=== PATIENT | female | born 1965 | race Caucasian/White ===

== ENCOUNTER → 2017-12-24 18:12 | Outpatient (CLI) | payer OTHER, SELFPAY ==
[2017-12-29 10:54] LABS: HPV APTIMA, High Risk Negative (Negative)
== END ==
PROVIDERS: Visit Provider Nurse Practitioner Women's Health
DX: Z12.4 Encounter for screening for malignant neoplasm of cervix (principal)
CPT/HCPCS: 88175; G0145

== ENCOUNTER → 2018-01-01 10:04 | Outpatient (CLI) | payer OTHER, SELFPAY ==
[2018-01-01 11:49] LABS: Follicle Stimulating Hormone 89.5 mIU/mL
== END ==
PROVIDERS: Family Provider Internal Medicine; PCP Internal Medicine; Visit Provider Nurse Practitioner Women's Health
DX: N91.5 Oligomenorrhea, unspecified (principal)
CPT/HCPCS: 36415; 83001

== ENCOUNTER → 2018-02-11 07:40 | Outpatient (CLI) | payer OTHER, SELFPAY ==
--- NOTE | 2018-02-11 07:40 | DT_ITS ---
This patient was seen during an EMR downtime February 09, 2018 - February 16, 2018. This patient may have a combination of paper and electronic documentation or all paper documentation. All documentation is viewable within the e-chart portion of [employer] for each patient visit.
--- NOTE | 2018-02-11 07:50 | BI_ITS ---
MAMMOGRAPHY - BILATERAL SCREENING REASON FOR EXAM: Female, 52 years old. Routine annual screening examination. PERTINENT HISTORY: Non-contributory. TECHNIQUE: Digital bilateral breast lore (3D mammographic acquisition) in the CC and MLO projections. 2-D mediolateral oblique (MLO) and craniocaudad (CC) views of both breasts were obtained. CAD: Full Field Digital Mammography with Computer Added Detection was performed. COMPARISON: Comparison is made with prior outside examination dated December 12, 2016. FINDINGS: Breast Composition: The breasts are heterogeneously dense, which may obscure small masses. There are no dominant masses or suspicious calcifications. Stable appearance of the benign appearing bilateral axillary lymph nodes. No other significant abnormalities are identified. There has been no significant change since the prior study. BI/SCREENING MAMM (CAD), BILAT IMPRESSION: Stable bilateral screening mammogram. Yearly follow-up mammogram recommended. (A) ASSESSMENT CATEGORY: BIRADS Category 2: Benign. A letter regarding these results will be sent to the patient by the facility within 30 days. Approximately 10% of breast cancers are not detected by mammography. A normal mammogram should not delay biopsy of a clinically suspicious abnormality. [id number] Electronically Signed: Asael Guerrero MD at 8:29 EDT Tel [phone], Service support ,
== END ==
PROVIDERS: Family Provider Internal Medicine; PCP Internal Medicine; Visit Provider Nurse Practitioner Women's Health
DX: Z12.31 Encounter for screening mammogram for malignant neoplasm of breast (principal)
CPT/HCPCS: 77063; 77067

== ENCOUNTER → 2019-04-27 | Outpatient (CLI) | payer BC, SELFPAY ==
[2019-04-27 08:55] VITALS: BMI 26.9
--- NOTE | 2019-04-27 10:21 | BI_ITS ---
MAMMOGRAPHY - BILATERAL SCREENING 3-D TOMOSYNTHESIS REASON FOR EXAM: Female, 53 years old. Bilateral Screening 3-D tomosynthesis PERTINENT HISTORY: No significant family history. TECHNIQUE: 2-D mammograms and 3-D Tomosynthesis of the breast (s) were performed. CAD was performed. COMPARISON: 02/11/2018. FINDINGS: The breast composition is composed of scattered fibroglandular density. Scattered benign calcifications are seen. No dense spiculated masses or suspicious microcalcifications are identified. No architectural distortion is identified. There is no skin thickening or retraction. There has been no significant change since the prior study. BI/SCREEN MAMM (CAD) W/SATYA BILAT IMPRESSION: No mammographic signs of malignancy. Routine yearly mammograms recommended. ASSESSMENT CATEGORY: BIRADS Category 2: Benign. A letter regarding these results will be sent to the patient by the facility within 30 days. FOLLOW UP RECOMMENDATION: Yearly follow up mammogram recommended. (A) Approximately 10% of breast cancers are not detected by mammography. A normal mammogram should not delay biopsy of a clinically suspicious abnormality. Electronically Signed: Dale Fernandes MD at 16:24 EDT Tel [phone], Service support ,
== END | disposition home or self-care (01) ==
PROVIDERS: Family Provider Internal Medicine; PCP Internal Medicine; Referring Provider Nurse Practitioner Women's Health; Visit Provider Nurse Practitioner Women's Health
DX: Z12.31 Encounter for screening mammogram for malignant neoplasm of breast (principal)
CPT/HCPCS: 77063; 77067

== ENCOUNTER → 2020-06-29 11:42 | Outpatient (CLI) | payer BC, SELFPAY ==
[2019-04-27 08:55] VITALS: BMI 26.9
[2020-06-29 08:50] VITALS: BMI 25.3
--- NOTE | 2020-06-29 11:43 | BI_ITS ---
MAMMOGRAPHY - BILATERAL SCREENING REASON FOR EXAM: Female, 54 years old. Routine annual screening examination. PERTINENT HISTORY: Non-contributory. TECHNIQUE: Digital bilateral breast satya (3D mammographic acquisition) in the CC and MLO projections. 2-D mediolateral oblique (MLO) and craniocaudad (CC) views of both breasts were obtained. CAD: Full Field Digital Mammography with Computer Added Detection was performed. COMPARISON: Comparison is made with prior examination in 04/27/2019 and 02/11/2018. FINDINGS: Breast Composition: There are scattered areas of fibroglandular density. There are no dominant masses or suspicious calcifications. No other significant abnormalities are identified. There has been no significant change since the prior study. BI/SCREEN MAMM (CAD) W/SATYA BILAT IMPRESSION: Stable bilateral screening mammogram. Yearly follow-up mammogram recommended. (A) ASSESSMENT CATEGORY: BIRADS Category 1: Negative. A letter regarding these results will be sent to the patient by the facility within 30 days. Approximately 10% of breast cancers are not detected by mammography. A normal mammogram should not delay biopsy of a clinically suspicious abnormality. [id number] Electronically Signed: Asael Guerrero, at 13:16 EDT , Service support ,
== END ==
PROVIDERS: PCP Internal Medicine; Referring Provider Nurse Practitioner Women's Health; Visit Provider Nurse Practitioner Women's Health
DX: Z12.31 Encounter for screening mammogram for malignant neoplasm of breast (principal)
CPT/HCPCS: 77063; 77067

== ENCOUNTER 2020-11-24 15:04 | Outpatient (RCR) | payer BC, SELFPAY ==
[2020-06-29 08:50] VITALS: BMI 25.3
[2020-11-24] MEDS: COVID-19 VACC, MRNA(PFIZER)/PF 30 MCG/0.3 ML SYRINGE IM (15:50)
[2020-12-15] MEDS: COVID-19 VACC, MRNA(PFIZER)/PF 30 MCG/0.3 ML SYRINGE IM (08:58)
== END 2020-11-24 23:59 ==
LOC: IMMUN 15:04
PROVIDERS: PCP Nurse Practitioner Primary Care; Referring Provider Family Medicine; Visit Provider Family Medicine
DX: Z23 Encounter for immunization (principal)
CPT/HCPCS: 0001A; 0002A; 91300

== ENCOUNTER → 2021-07-16 15:16 | Outpatient (CLI) | payer BC, SELFPAY ==
--- NOTE | 2021-07-16 15:18 | BI_ITS ---
MAMMOGRAPHY - BILATERAL SCREENING REASON FOR EXAM: Female, 55 years old. Routine annual screening examination. PERTINENT HISTORY: Non-contributory. TECHNIQUE: Digital bilateral breast satya (3D mammographic acquisition) in the CC and MLO projections. 2-D mediolateral oblique (MLO) and craniocaudad (CC) views of both breasts were obtained. CAD: Full Field Digital Mammography with Computer Added Detection was performed. COMPARISON: Comparison is made with prior study 06/29/2020 and 04/27/2019. FINDINGS: Breast Composition: There are scattered areas of fibroglandular density. There are no dominant masses or suspicious calcifications. Stable small benign-appearing bilateral axillary lymph nodes. No other significant abnormalities are identified. There has been no significant change since the prior study. BI/SCRN MAMM (CAD)W/SATYA BILAT IMPRESSION: Stable bilateral screening mammogram. Yearly follow-up mammogram recommended. (A) ASSESSMENT CATEGORY: BIRADS Category 2: Benign. A letter regarding these results will be sent to the patient by the facility within 30 days. Approximately 10% of breast cancers are not detected by mammography. A normal mammogram should not delay biopsy of a clinically suspicious abnormality. [id number] Electronically Signed: Asael Guerrero MD at 8:59 EST , Service support ,
== END ==
PROVIDERS: PCP Nurse Practitioner; Visit Provider Nurse Practitioner Women's Health
DX: Z12.31 Encounter for screening mammogram for malignant neoplasm of breast (principal)
CPT/HCPCS: 77063; 77067

== ENCOUNTER 2022-08-07 10:24 | Outpatient (CLI) | payer BC, SELFPAY ==
--- NOTE | 2022-08-07 10:27 | BI_ITS ---
MAMMOGRAPHY - BILATERAL SCREENING REASON FOR EXAM: Female, 56 years old. Routine annual screening examination. PERTINENT HISTORY: Non-contributory. TECHNIQUE: Digital bilateral breast satya (3D mammographic acquisition) in the CC and MLO projections. 2-D mediolateral oblique (MLO) and craniocaudad (CC) views of both breasts were obtained. CAD: Full Field Digital Mammography with Computer Added Detection was performed. COMPARISON: Comparison is made with prior study 07/16/2021 and 06/29/2020. FINDINGS: Breast Composition: There are scattered areas of fibroglandular density. There are no dominant masses or suspicious calcifications. Stable small benign-appearing bilateral axillary. No other significant abnormalities are identified. There has been no significant change since the prior study. BI/SCRN MAMM (CAD)W/SATYA BILAT IMPRESSION: Stable bilateral screening mammogram. Yearly follow-up mammogram recommended. (A) ASSESSMENT CATEGORY: BIRADS Category 2: Benign. A letter regarding these results will be sent to the patient by the facility within 30 days. Approximately 10% of breast cancers are not detected by mammography. A normal mammogram should not delay biopsy of a clinically suspicious abnormality. [id number] Electronically Signed: Asael Guerrero MD at 11:25 EST ,
== END 2022-08-07 23:59 | disposition home or self-care (01) ==
LOC: OPBI 10:26
PROVIDERS: PCP Nurse Practitioner; Visit Provider Nurse Practitioner Women's Health
DX: Z12.31 Encounter for screening mammogram for malignant neoplasm of breast (principal)
CPT/HCPCS: 77063; 77067

== ENCOUNTER 2023-04-10 14:33 | Emergency (ER) | payer BC, SELFPAY ==
[2023-04-10 14:34] VITALS: BP 178/100; PULSE 115; RESP 16; TEMP 36.2; O2SAT 99; BMI 25.8
--- NOTE | 2023-04-10 14:44 | EDS_ITS ---
HPI <RADHA Wiley - Last Filed: 04/10/23 15:55> History of Present Illness Chief Complaint: Upper Extremity Injury Narrative Narrative: Patient presenting today with pain into her left hand after she was walking her dog in flip-flops and accidentally tripped on the cement and fell, trying to catch herself with her left hand but subsequently hit it against the ground. She did not hit her head and denies loss of consciousness. She denies any other injury. She has [id number]. PFSH <RADHA Wiley - Last Filed: 04/10/23 15:55> [facility] Home Medications biotin 1 mg capsule 1 mg PO QDAY 12/24/17 [History Last Taken Unknown] multivitamin 1 tab PO QAM 12/24/17 [History Last Taken Unknown] coenzyme Q10 75 mg capsule (Ultra CoQ10) 75 mg PO DAILY 04/27/19 [History Last Taken Unknown] estradiol 0.01% (0.1 mg/gram) vaginal cream See Rx Instructions vaginal .COMPLEX 07/16/21 [History Last Taken Unknown] Allergy/AdvReac Type Severity Reaction Status Date / Time No Known Allergies Allergy Verified 04/10/23 14:35 Family History Father Hypertension Social History Smoking Status: Never smoker alcohol intake: current details: occasionally substance use type: does not use caffeine: Yes what type of physical activity do you participate in: other details: elliptical frequency: 1-2 times per week seatbelt use: always do you feel safe at home: Yes additional social history: - [employer]-Retired 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 ROS <RADHA Wiley - Last Filed: 04/10/23 15:55> ROS ED Constitutional Constitutional ED: Denies chills or fever(s) Eyes Eyes: Denies change in vision Cardiovascular Cardiovascular: Denies chest pain Respiratory/Chest Respiratory/Chest: Denies cough or dyspnea Gastrointestinal Gastrointestinal: Denies abdominal pain, nausea or vomiting Musculoskeletal Musculoskeletal: Reports arthralgias; Denies back pain or neck pain Integumentary Reports Abrasions; Denies abscess or rash Neurologic Neurologic: Denies paresthesias or weakness EXAM <RADHA Wiley - Last Filed: 04/10/23 15:55> Physical Exam Const Vital Signs: 04/10/23 14:34 Temperature 97.2 F L Temperature Source Temporal Pulse Rate 115 H Respiratory Rate 16 Blood Pressure 178/100 H Blood Pressure Mean 126 Pulse Ox 99 Oxygen Delivery Method Room Air Positive well nourished, well developed and no apparent distress General Appearance ED: well developed HEENT Reports normocephalic and head/scalp atraumatic Mouth ED: Yes moist mucous membranes normal Eyes PERRL and EOMs intact bilaterally Neck full ROM and supple Chest Wall inspection of chest normal Resp normal respiratory effort and clear to auscultation bilaterally Cardio regular rate and regular rhythm GI soft to palpation, non-tender, non-distended and no masses Back/Spine normal ROM and normal to inspection Extremity normal to inspection and full ROM Extremity Narrative: Swelling to the medial aspect of the left hand with pain to palpation to the base of the fifth metacarpal. Radial pulses 2+ and equal bilaterally, good capillary refill, sensation intact. Patient is able to wiggle her fingers. Neuro oriented x3, CN's II-XII intact bilaterally, moves all extremities, no focal motor deficits and no sensory deficits noted Sensorium / Orientation: awake and alert Psych mental status grossly normal and thought process normal Skin no rashes or lesions noted and no wounds MDM <RADHA Wiley - Last Filed: 04/10/23 15:55> [facility] Narrative Medical decision making narrative: Patient presenting today with pain to her left hand after a mechanical fall that occurred causing her to hit her left hand against the cement. She has swelling and pain to the medial aspect of the left hand. She is well-appearing and in no acute distress. She did not hit her head and there was no loss of consciousness. She has a few abrasions to the left hand and one abrasion to the right knee without any pain to her right knee. X-ray will be obtained to rule fracture. She does have a fracture to the base of the third fourth and fifth metacarpals. Patient reports that she does not want anything stronger than Tylenol for her pain. She will be given Tylenol here and has a bottle of it at home. Attending did speak with orthopedic physician on-call, Dr. Valdez who reports that somebody in his office will see her and to place her in an ulnar gutter splint. She will be given a follow-up referral for Dr. Sung and has been given RICE instructions. She will be discharged home in stable condition and is comfortable with plan. Radiography X-Ray: Read by ED Physician and Read by Radiologist <Dr. Dylan Dean MD - Last Filed: 04/10/23 16:05> [facility] Narrative Medical decision making narrative: Patient presenting today with pain to her left hand after a mechanical fall that occurred causing her to hit her left hand against the cement. She has swelling and pain to the medial aspect of the left hand. She is well-appearing and in no acute distress. She did not hit her head and there was no loss of consciousness. She has a few abrasions to the left hand and one abrasion to the right knee without any pain to her right knee. X-ray will be obtained to rule fracture. She does have a fracture to the base of the third fourth and fifth metacarpals. Patient reports that she does not want anything stronger than Tylenol for her pain. She will be given Tylenol here and has a bottle of it at home. Attending did speak with orthopedic physician on-call, Dr. Valdez who reports that somebody in his office will see her and to place her in an ulnar gutter splint. She will be given a follow-up referral for Dr. Sung and has been given RICE instructions. She will be discharged home in stable condition and is comfortable with plan. I have personally performed a face to face assessment of the patient and have reviewed the DENNIS Note. I performed a substantive portion of the visit including all aspects of the following. My de la paz findings include: History is remarkable for patient falling injuring her right hand. She is right-hand dominant. She localizes the pain to the base of the fourth and fifth metacarpal bone. She denies paresthesia, anesthesia medics. She has abrasion noted ulnar side of the hand and left little finger. There is also an abrasion on the palmar surface near the intersection of the thenar and hypothenar eminence. Median, radial and ulnar function intact. Capillary refill is normal. There is no rotational malalignment of her fingers. Exam is She has abrasion noted ulnar side of the hand and left little finger. There is also an abrasion on the palmar surface near the intersection of the thenar and hypothenar eminence. Median, radial and ulnar function intact. Capillary refill is normal. There is no rotational malalignment of her fingers. Medical Decision Making x-ray of the hand was obtained to evaluate for fracture. Patient is noted to have a minimally displaced fracture base of the fifth metacarpal that is a spiral type fracture and a fracture of the base of the fourth metacarpal with approximately 25% of the articular surface noted. There is minimal displacement. Case was discussed with Dr. Riley Valdez. Patient was referred to Dr. Sung who does do hand surgery in their group. Plan was ulnar gutter plaster splint. This was placed by me. Patient's wounds were cleaned. Adaptic and nonadhesive cover was placed. The ulnar gutter splint was then applied by me and assisted by nursing staff. Patient tolerated procedure well. Other additions or changes: Patient was told to elevate, ice and she did not want any pain medicine. Discharge Plan Triage Chief Complaint: Upper Extremity Injury ED Midlevel Provider: Lupe Ames ED Provider: Dylan Dean Dx/Rx/DC Orders Clinical Impression: Hand fracture, left, Abrasion of left hand and fingers, Closed fracture of base of fourth metacarpal bone of left hand, Fracture of base of fifth metacarpal bone of left hand Instructions: ED Fracture, Upper Extremity Prescriptions: No Action multivitamin tablet 1 tab PO QAM biotin 1 mg capsule 1 mg PO QDAY Ultra CoQ10 75 mg capsule 75 mg PO DAILY estradiol 0.01 % (0.1 mg/gram) cream See Rx Instructions vaginal .COMPLEX Rx Instructions: compounded as directed vaginal every other day X 1 month then twice a week Primary Care Provider: Evita Spann NP Referrals: Sidney Sung DO [Med Staff - Active Staff] - 5-7 Days Evita Spann NP, [employer] [Primary Care Provider] - Activity Restrictions/Additional Instructions: Elevate your hand when you can and ice it several times a day for the next few days. Alternate Tylenol and ibuprofen for your pain Disposition Disposition: Home, Self Care
--- NOTE | 2023-04-10 14:45 | RAD_ITS ---
EXAM: XR LEFT HAND COMPLETE, 3 OR MORE VIEWS CLINICAL INDICATION: injury TECHNIQUE: Frontal, lateral and oblique views of the left hand. COMPARISON: No relevant prior studies available. FINDINGS: BONES/JOINTS: Fracture of the base of the fifth and fourth metacarpal bone. Fracture the base of the third metacarpal bone. The fracture is slightly displaced. Preservation of the joint space. No sclerotic or destructive changes observed. SOFT TISSUES: Unremarkable. No soft tissue swelling or gas. No radiopaque foreign body. RAD/Hand Min 3 Views IMPRESSION: Fracture of the base of the fifth and fourth metacarpal bone. Fracture the base of the third metacarpal bone. The fracture is slightly displaced. Electronically Signed: Chandana Mclaughlin MD at 15:27 EDT ,
[2023-04-10] MEDS: Acetaminophen 325 MG Tablet 650 MG PO (16:11)
== END 2023-04-10 16:16 | disposition home or self-care (01) ==
PROVIDERS: Emergency Provider Emergency Medicine; PCP Nurse Practitioner; Visit Provider Emergency Medicine
DX: S62.317A Displaced fracture of base of fifth metacarpal bone, left hand, initial encounter for closed fracture (principal); S60.512A Abrasion of left hand, initial encounter; S62.315A Displaced fracture of base of fourth metacarpal bone, left hand, initial encounter for closed fracture; S62.303A Unspecified fracture of third metacarpal bone, left hand, initial encounter for closed fracture; W01.198A Fall on same level from slipping, tripping and stumbling with subsequent striking against other object, initial encounter; Y93.K1 Activity, walking an animal
CPT/HCPCS: 29125; 73130; 99283

== ENCOUNTER → 2023-04-23 | Outpatient (CLI) | payer BC, SELFPAY ==
--- NOTE | 2023-04-23 19:03 | CT_ITS ---
INDICATION: LEFT HAND FX EXAMINATION: CT Upper Extremity W/O Contrast Injection TECHNIQUE: Helically acquired images were obtained of the left hand. 2-D reformats were performed by the technologist. A radiation dose optimization technique was used for this scan. IV Contrast dosage and agent: None. COMPARISON: None. FINDINGS: BONES AND ALIGNMENT: Acute slightly comminuted and minimally displaced fractures of the bases of the fourth and fifth metacarpals with intra-articular extension. JOINTS: Mild degenerative changes of the radiocarpal joint and interphalangeal joints.. SOFT TISSUES: Mild soft tissue edema of the hand and wrist. CT/Extremity Upper without Contra IMPRESSION: Acute slightly comminuted and minimally displaced fractures of the bases of the fourth and fifth metacarpals with intra-articular extension. Electronically Signed: Rashaun Harmon MD at 19:51 EDT ,
== END | disposition home or self-care (01) ==
LOC: CT 19:02
PROVIDERS: PCP Nurse Practitioner; Visit Provider Student in an Organized Health Care Education/Training Program
DX: S62.317D Displaced fracture of base of fifth metacarpal bone, left hand, subsequent encounter for fracture with routine healing (principal); S62.315D Displaced fracture of base of fourth metacarpal bone, left hand, subsequent encounter for fracture with routine healing
CPT/HCPCS: 73200

== ENCOUNTER 2023-04-24 11:20 | Day surgery (SDC) | payer BC, SELFPAY ==
--- NOTE | 2023-04-21 08:23 | EKG12_ITS ---
Test Reason : PRE OP Blood Pressure : / mmHG Vent. Rate : 109 BPM Atrial Rate : 109 BPM P-R Int : 142 ms QRS Dur : 076 ms QT Int : 348 ms P-R-T Axes : 052 052 046 degrees QTc Int : 468 ms Sinus tachycardia Possible Left atrial enlargement Borderline ECG Confirmed by NICK MENDEZ ([id number]), electronic news gathering editor RENAE GUERRERO ([id number]) on 04/28/2023 2:04:22 PM Referred By: Sidney Sung Confirmed By:NICK MENDEZ
[2023-04-21 09:32] LABS: Absolute Lymphocyte Count 2.29 X10^3/uL (0.83-4.51); Basophil# 0.07 X10^3/uL; Basophil% 0.9 % (0-1); Eosinophil# 0.18 X10^3/uL; Eosinophils% 2.2 % (0-5); Hematocrit 47.3 % (37-47); Hemoglobin 15.5 g/dL (12.0-15.0); Lymphocyte # 2.29 X10^3/ul (0.83-4.51); Lymphocyte % 28.5 % (19-41); Mean Corp Hgb Conc 32.8 g/dL (32-36); Mean Corpuscular Hgb 28.4 pg (27.0-32.0); Mean Corpuscular Volume 86.8 fL (81-99); Mean Platelet Vol. 9.6 fl (6.2-12.0); Monocyte# 0.51 X10^3/uL; Monocyte% 6.4 % (0-10); NRBC Flagged by Analyzer 0 % (0-5); Neutrophil # 4.96 X10^3/uL (2.7-7.7); Neutrophil % 61.8 % (47-70); Platelet Count 324 K/mm3 (150-450); RBC Distribution Width CV 12.8 % (11.6-14.6); RBC Distribution Width SD 39.9 fl (35.1-43.9); Red Blood Count 5.45 M/mm3 (4.2-5.4)
[2023-04-21 10:06] LABS: Hemoglobin A1c 5.5 % (3.8-5.6)
[2023-04-21 10:21] LABS: Anion Gap 6 (5-15); BUN 12 mg/dL (7-18); BUN/Creat Ratio 13.5 RATIO (10-20); Calcium,Total 9.1 mg/dL (8.5-10.1); Chloride 109 mmol/L (98-107); Creatinine, Serum 0.89 mg/dL (0.55-1.02); EST Glomerular Filtration Rate 70 mL/min (>60); Est Glom Filt Rate - Afr Amer 84 mL/min (>60); Glucose 100 mg/dL (74-106); Potassium 3.8 mmol/L (3.5-5.1); Sodium Level 140 mmol/L (136-145)
[2023-04-24 11:46] VITALS: BP 150/87; PULSE 96; RESP 16; O2SAT 100; BMI 26.6
[2023-04-24] MEDS: Lactated Ringers 1,000 ML 15 ML IV (12:03)
--- NOTE | 2023-04-24 12:50 | RAD_ITS ---
EXAM: XR LEFT HAND, 2 VIEWS CLINICAL INDICATION: FX TECHNIQUE: Frontal and lateral views of the left hand. COMPARISON: 04/10/2023 FINDINGS: BONES/JOINTS: Intraoperative images were obtained. These show orthopedic plate and screws across a fracture of the fifth metacarpal. Preservation of the joint space. No sclerotic or destructive changes observed. SOFT TISSUES: Unremarkable. No soft tissue swelling or gas. No radiopaque foreign body. RAD/Hand 2 Views IMPRESSION: ORIF of a fifth metacarpal fracture. Electronically Signed: Kwabena Shipley MD at 19:47 EDT ,
[2023-04-24] MEDS: Cefazolin 2 GM in 0.9% Normal Saline 100 ML IV (12:57)
[2023-04-24] MEDS: Bupivacaine Mpf 0.5% 30 ML VIAL (14:07)
[2023-04-24 14:34] VITALS: BP 140/86; BP 150/87; PULSE 93; RESP 16; O2SAT 96
[2023-04-24 14:36] VITALS: BP 130/49; BP 150/87; PULSE 98; RESP 16; TEMP 36.6; O2SAT 97
[2023-04-24 14:55] VITALS: BP 128/70; BP 150/87; PULSE 100; RESP 16; TEMP 36.4; O2SAT 98
[2023-04-24] MEDS: Ketorolac 30 MG/ML Syringe IV (15:14)
[2023-04-24 15:18] VITALS: BP 150/87
--- NOTE | 2023-04-24 19:13 | OP.PCM_ITS ---
Report of Operation Date of Procedure: 04/24/23 Description of Surgical Findings:: Preoperative diagnosis: Left fifth metacarpal base fracture Postoperative diagnosis: Left fifth metacarpal base fracture Procedures: Open reduction internal fixation left fifth metacarpal base Surgeon: Sidney Sung DO Foreign Trade Teacher: Dionne Liriano PA-C Anesthesia: General endotracheal Anesthesiologist: Dr. Claire Complications: None Drains: None Estimated blood loss: 10 cc Urinary output: None measured IV fluids: Per anesthesia record Specimens: None Surgical implants: Synthes 2.0 mm T plate and cortical screws Surgical indications: This is a 57-year-old female seen in the outpatient setting after being seen in the [facility] emergency department approximately 2 weeks ago. Patient had a fall operative onto her left hand while she was walking her dog. X-rays revealed fractures of the fourth and fifth metacarpal bases. She was seen in the outpatient setting. 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 I recommended surgical intervention in the form of closed reduction percutaneous pinning versus ORIF left fifth metacarpal. The fourth metacarpal appeared to be amenable to nonoperative management. Risk, benefits, alternatives to the procedure reviewed with the patient at length and she agreed to proceed with surgery. Risks included but were not limited to bleeding, infection, loss of life or limb, persistent pain, persistent deformity, weakness, need for additional surgery, symptomatic hardware, neurovascular injury, tendon rupture. She expressed understanding and wished to proceed with surgery. Description of procedure: Patient was seen in preoperative holding area. She was identified by name, medical record number, date of . The operative extremity was marked with a surgical marker. We confirmed informed consent with the patient and all questions were answered to her satisfaction. At time of her procedure, patient was brought to the operative suite and positioned supine a standard operating table. All bony prominences were well- padded. General anesthesia was induced and endotracheal tube placed. The left upper extremity was then prepped for surgery by first applying a well-padded pneumatic tourniquet to the left forearm. The hand table attached to the left side of the table. We spun the bed 90 degrees. The left upper extremity was then prepped and draped in normal, sterile orthopedic fashion. 2 g Ancef was administered prior to incision by anesthesia staff. We performed a timeout at this point confirming side, site, and operation to be performed. No concerns voiced and elected to proceed. We first exsanguinated the left upper extremity with a an Esmarch bandage. Tourniquet was inflated to 250 mmHg were made up for approximately 40 minutes. I attempted a closed reduction maneuver with longitudinal traction and direct manipulation of the fracture. I was unable to achieve appropriate rotational stability. Elected proceed with ORIF. A standard longitudinal approach was made overlying the fifth metacarpal base. Approximately 4 cm longitudinal incision was made sharply with a 15 blade scalpel. Blunt dissection was carried down to the level of the extensor tendons. The extensor tendons of the fifth digit were retracted ulnarly. Periosteal stripping was noted at this level of the fracture site. Early fracture callus was debrided as well as fracture hematoma. Fracture was irrigated. I then utilized a pointed reduction clamp to achieve anatomic reduction of the spiral fracture at the base of the fifth metacarpal. This was held in place with K wires. I scrutinized the rotational deformity of her fifth digit. I visualized the well side and felt the rotation was anatomic. I proceeded with leg screw fixation with a lag by technique 2.0 mm lag screw obliquely, crossing the fracture site perpendicularly with exce llent compression and stability. Provisional fixation was removed. I selected a T plate from [employer], 2.0 mm. This was trimmed for appropriate length. This was held provisionally with K wires. Orthogonal fluoroscopy confirmed appropriate hardware placement. I compressed the plate to bone with cortical screws proximal and distal to the fracture site. Rotation was again scrutinized and appeared to be anatomic. An additional cortical screw was placed proximal to the fracture site. Given the periarticular nature, we are limited in achieving proximal fixation. I placed 2 additional cortical screws distal to the fracture site. Fracture is stable at this time. Orthogonal fluoroscopy confirmed appropriate hardware placement and anatomic reduction. Tourniquet deflated hemostasis was achieved with bipolar cautery. I reapproximated periosteum over the plate to mitigate risk of hardware irritation. Tendons were repositioned over the fifth metacarpal. Dermis was reapproximated with 3-0 Vicryl suture and subsequent 4-0 nylon suture in interrupted horizontal mattress fashion. Sterile compression dressing was applied. Patient was placed in a well-padded volar short arm splint in intrinsic plus position. Patient tolerated procedure well without apparent complication. She was subsequently extubated and transferred to PACU in stable condition. Need for skilled assistant food service manager: Dionne Liriano PA-C was critical to the outcome of the case. During the course of the procedure the physician assistant food service manager played a vital role. Her intimate knowledge of my steps in the procedure aided in safe and expedient completion of the procedure. The PA played a vital role in positioning particularly in obtaining the appropriate positioning. The PA was also vital in the retraction of soft tissues during the exposure and protecting vital structures. . She also played a vital role in closure with my direct supervision as well as splint application. Post Operative Plan: Weightbearing: Nonweightbearing operative extremity Antibiotics: Ancef 2 g x 1 dose preoperatively DVT Prophylaxis: Aspirin 81 mg twice daily until follow-up [place]dermott: None Dressing: Maintain splint, keep it clean dry and intact until follow-up X-Rays: 1 week postop in the office Pain Medication: Oxycodone prescription provided in the office Follow-up: 1 week post-operatively with me in the office. Plan to initiate ear ly OT for range of motion.
== END 2023-04-24 16:03 | disposition home or self-care (01) ==
LOC: SDC 11:27 → AC 11:27
PROVIDERS: PCP Nurse Practitioner; Referring Provider Student in an Organized Health Care Education/Training Program; Visit Provider Student in an Organized Health Care Education/Training Program
PROC: (CPT 26605; principal; 2023-04-24 12:45)
DX: S62.317D Displaced fracture of base of fifth metacarpal bone, left hand, subsequent encounter for fracture with routine healing (principal); S62.315D Displaced fracture of base of fourth metacarpal bone, left hand, subsequent encounter for fracture with routine healing; S62.343D Nondisplaced fracture of base of third metacarpal bone, left hand, subsequent encounter for fracture with routine healing; S60.512D Abrasion of left hand, subsequent encounter; M79.642 Pain in left hand; R03.0 Elevated blood-pressure reading, without diagnosis of hypertension; W01.0XXD Fall on same level from slipping, tripping and stumbling without subsequent striking against object, subsequent encounter
CPT/HCPCS: 26605; 01820; 36415; 73120; 76000; 80048; 83036; 85025; 93005; C1713; J7120; J2405

== ENCOUNTER → 2023-09-16 | Outpatient (CLI) | payer BC, SELFPAY ==
[2023-09-19 06:09] LABS: HPV APTIMA, High Risk Negative (Negative)
== END | disposition home or self-care (01) ==
PROVIDERS: PCP Nurse Practitioner; Referring Provider Nurse Practitioner Women's Health; Visit Provider Nurse Practitioner Women's Health
DX: Z12.4 Encounter for screening for malignant neoplasm of cervix (principal)
CPT/HCPCS: 87624; 88175; G0145

== ENCOUNTER → 2023-09-16 | Outpatient (CLI) | payer BC, SELFPAY ==
--- NOTE | 2023-09-16 10:21 | BI_ITS ---
MAMMOGRAPHY - BILATERAL SCREENING REASON FOR EXAM: Female, 57 years old. Routine annual screening examination. PERTINENT HISTORY: Non-contributory. TECHNIQUE: Digital bilateral breast satya (3D mammographic acquisition) in the CC and MLO projections. 2-D mediolateral oblique (MLO) and craniocaudad (CC) views of both breasts were obtained. CAD: Full Field Digital Mammography with Computer Added Detection was performed. COMPARISON: Comparison is made with prior examination dated August 07, 2022 and July 16, 2021. FINDINGS: Breast Composition: There are scattered areas of fibroglandular density. There are no dominant masses or suspicious calcifications. No other significant abnormalities are identified. There has been no significant change since the prior study. BI/SCRN MAMM (CAD)W/SATYA BILAT IMPRESSION: Stable bilateral screening mammogram. Yearly follow-up mammogram recommended. (A) ASSESSMENT CATEGORY: BIRADS Category 1: Negative. A letter regarding these results will be sent to the patient by the facility within 30 days. Approximately 10% of breast cancers are not detected by mammography. A normal mammogram should not delay biopsy of a clinically suspicious abnormality. [id number] Electronically Signed: Asael Guerrero MD at 11:02 EST ,
--- OUTSIDE RECORDS SUMMARY | 2023-09-16 11:29 | XMS RPT_ITS | CCD ---
Author Name Unknown Address [address] [place] [address] Organization [facility] Care Team Providers Care Licensed Psychologist Manager Name Role Phone Brayden MERINO, Ela Primary Care Provider [phone] OLDER, ROSA Attending Unavailable ELA HARP Primary Care Unavailable ELA HARP Primary Care Unavailable JOLYNN EAGLE Attending Unavailable ELA HARP Primary Care Unavailable JOLYNN EAGLE Attending Unavailable ELA HARP Primary Care Unavailable ROSA CARDENAS Referring Unavailable ELA HARP Primary Care Unavailable THERESA ROSA Referring Unavailable ELA HARP Primary Care Unavailable OLDER, ROSA Referring Unavailable Allergies Allergy Classification Reported Allergen(s) Allergy Type Date of Onset Reaction(s) Facility (6 sources) Seasonal allergy; Translations: [SEASONAL ALLERGIES] Allergy to substance 06-04-2011 Itching [facility] Work Phone: Medications Completed/Discontinued Medications Medication Drug Class(es) Dates Sig (Normalized) Sig (Original) Biotin (5 sources) Biotin 500 mcg c ap Take by mouth. 0 Active Problems Active Problems Problem Classification Problem Date Documented Da te Episodic/Chronic Disorders of lipid metabolism (8 sources) Mixed hyperlipidemia; Translations: [Mixed hyperlipidemia] Onset: 06-11-2017 Chronic Other liver diseases (1 source) Elevated liver enzymes level; Translations: [Abnormal levels of other serum enzymes] 08-08-2023 Episodic Other liver diseases (1 source) Abnormal levels of other serum enzymes; Translations: [Elevated liver enzymes] Onset: 08-18-2023 Episodic Other screening for suspected conditions (not mental disorders or infectious disease) (2 sources) Patient encounter status; Translations: [Encounter for screening for malignant neoplasm of colon] Episodic Other skin disorders (1 source) Loss of hair; Translations: [Nonscarring hair loss, unspecified] 08-04-2023 Episodic Other skin disorders (1 source) Nonscarring hair loss, unspecified; Translations: [Thinning hair] Onset: 08-04-2023 Episodic Residual codes; unclassified (2 sources) Treatment not available; Translations: [Procedure and treatment not carried out for other reasons] Episodic Past or Other Problems Problem Classification Problem Date Documented Da te Episodic/Chronic Other connective tissue disease (5 sources) Adhesive capsulitis of left shoulder; Translations: [Adhesive capsulitis of left shoulder] Onset: 10-11-2020 10-11-2020 Episodic Results Test Name Value Interpretation Reference Range Facil ity Vital Signs Date Time Vital Sign Value Performing Clinician Faci lity 08-04-2023 08:40-0500 Body height 166 cm Rosa Older MOTEL FRONT DESK CLERK.[address] ATTENDANT Work Phone: [facility] 08-04-2023 08:40-0500 Body weight 73.03 kg Rosa Older MOTEL FRONT DESK CLERK.[address] ATTENDANT Work Phone: [facility] 08-04-2023 08:40-0500 Diastolic blood pressure 84 mm[Hg] Rosa Older MOTEL FRONT DESK CLERK.[address] ATTENDANT Work Phone: [facility] 08-04-2023 08:40-0500 Heart rate 88 /min Rosa Older MOTEL FRONT DESK CLERK.[address] ATTENDANT Work Phone: [facility] 08-04-2023 08:40-0500 Respiratory rate 18 /min Rosa Older MOTEL FRONT DESK CLERK.[address] ATTENDANT Work Phone: [facility] 08-04-2023 08:40-0500 Systolic blood pressure 116 mm[Hg] Rosa Older MOTEL FRONT DESK CLERK.[address] ATTENDANT Work Phone: [facility] 10-28-2022 11:56-0500 Body height 167.6 cm Jolynn Eagle MOTEL FRONT DESK CLERK.[address] ATTENDANT Work Phone: [facility] 10-28-2022 11:56-0500 Body temperature 99.19 [degF] Jolynn Eagle MOTEL FRONT DESK CLERK.[address] ATTENDANT Work Phone: [facility] 10-28-2022 11:56-0500 Body weight 69.85 kg Jolynn Eagle MOTEL FRONT DESK CLERK.[address] ATTENDANT Work Phone: [facility] 07-31-2022 12:38-0500 Body weight 71.22 kg Rosa Older MOTEL FRONT DESK CLERK.[address] ATTENDANT Work Phone: [facility] 07-31-2022 12:38-0500 Diastolic blood pressure 82 mm[Hg] Rosa Older MOTEL FRONT DESK CLERK.[address] ATTENDANT Work Phone: [facility] 07-31-2022 12:38-0500 Heart rate 68 /min Rosa Older MOTEL FRONT DESK CLERK.[address] ATTENDANT Work Phone: [facility] 07-31-2022 12:38-0500 Respiratory rate 16 /min Rosa Older MOTEL FRONT DESK CLERK.[address] ATTENDANT Work Phone: [facility] 07-31-2022 12:38-0500 Systolic blood pressure 118 mm[Hg] Rosa Older MOTEL FRONT DESK CLERK.[address] ATTENDANT Work Phone: [facility] Encounters Encounter Date Encounter Type Care Provider Facility Start: 08-18-2023 End: 08-19-2023 [facility] Facility:[facility] Start: 08-08-2023 Telephone encounter Rosa Older MOTEL FRONT DESK CLERK.[address] ATTENDANT Work Phone: Internal Medicine Nnamdi Procedures Date Procedure Procedure Detail Performing Clinician Start: 08-04-2023 INFLUENZA VACCINE, A GE 6 MO - 64 YR, QUADRIVALENT (AFLURIA, FLULAVAL, FLUZONE) Rosa Older MOTEL FRONT DESK CLERK.[address] ATTENDANT Work Phone: Start: 08-04-2023 [employer] COVI D-19 VACCINE (2022- SEASON) AGE 12+ YR Rosa Older MOTEL FRONT DESK CLERK.[address] ATTENDANT Work Phone: Start: 08-04-2023 Lipid 1996 panel - S polina or Plasma Rosa Older MOTEL FRONT DESK CLERK.[address] ATTENDANT Work Phone: Start: 08-07-2022 Mammography Katalyn Ye nne MOTEL FRONT DESK CLERK.[address] ATTENDANT Work Phone: Start: 07-16-2021 Mammography Rosa Older MOTEL FRONT DESK CLERK.[address] ATTENDANT Work Phone: Start: 12-12-2016 Colonoscopy Rosa Older MOTEL FRONT DESK CLERK.[address] ATTENDANT Work Phone: Plan of Treatment Date Care Activity Detail Author Start: 08-04-2028 Lipid 1996 panel - S polina or Plasma Lipid Screening [facility] Start: 07-31-2027 Lipid 1996 panel - S polina or Plasma Lipid Screening [facility] Start: 07-31-2027 LIPID SCREEN LIPID SCREEN [facility] Start: 08-01-2026 LIPID SCREEN LIPID SCREEN [facility] Start: 08-23-2025 COLOGUARD (FIT-DNA) COLOGUARD (FIT-D NA) [facility] Start: 08-23-2025 COLORECTAL CANCER SCREENING COLORECTAL CANCER SCREENING [facility] Start: 07-31-2025 DIABETES SCREEN DIABETES SCREEN [facility] Start: 07-31-2025 Diabetes Screening Diabetes Screenin g [facility] Start: 08-04-2024 Hepatitis B Vaccine (1 of 3 - 3-dose series) Hepatitis B Vaccine (1 of 3 - 3-dose series) [facility] Immunizations Immunization Date Immunization Notes Care Provider Fa bunny 08-04-2023 COVID-19 vaccine, ag e 12+ yr, season ([employer]) Rosa Older MOTEL FRONT DESK CLERK.[address] ATTENDANT Work Phone: [facility] Work Phone: 08-04-2023 influenza, injectabl e, quadrivalent, contains preservative Rosa Older MOTEL FRONT DESK CLERK.[address] ATTENDANT Work Phone: [facility] Work Phone: 12-14-2021 zoster vaccine recombinant Rosa Older MOTEL FRONT DESK CLERK.[address] ATTENDANT Work Phone: [facility] Work Phone: 07-25-2021 influenza, injectabl e, quadrivalent, contains preservative Rosa Older MOTEL FRONT DESK CLERK.[address] ATTENDANT Work Phone: [facility] 07-25-2021 zoster vaccine recombinant Rosa Older MOTEL FRONT DESK CLERK.[address] ATTENDANT Work Phone: [facility] 07-10-2020 influenza, injectabl e, quadrivalent, contains preservative Rosa Older MOTEL FRONT DESK CLERK.[address] ATTENDANT Work Phone: [facility] 06-17-2012 tetanus toxoid, redu batsheva diphtheria toxoid, and acellular pertussis vaccine, adsorbed Rosa Older MOTEL FRONT DESK CLERK.[address] ATTENDANT Work Phone: [facility] Work Phone: 07-16-2005 influenza virus vaccine, unspecified formulation Rosa Cardenas MIKE.[address] ATTENDANT Work Phone: [facility] Work Phone: Payers Date Payer Category Payer Unknown [employer] BLUE C[employer] PPO OOS [id number] 2021-Present [phone] [address] [place] [address] PPO [id number] 2021 Unknown [id number] Social History Date Type Detail Facility Start: 06-17-2012 Tobacco smoking stat [facility] Never smoked tobacco [facility] Start: 06-17-2012 Tobacco use and exposure Smokeless tobacco non-user [facility] Start: 07-31-2022 End: 08-04-2023 Alcohol intake Current drinker of alcohol (finding) [facility] Start: 07-31-2022 End: 08-03-2023 Alcohol intake [facility] Start: 07-29-2022 History SDOH Alcohol Frequency 3 [facility] Start: 07-29-2022 History SDOH Alcohol Std Drinks 1 [facility] Start: 07-29-2022 History SDOH Social Connections Phone 5 [facility] Start: 07-29-2022 History SDOH Social Connections Get Together 2 [facility] Start: 12-12-2016 [facility] Start: 1965 Sex Assigned At Female C [facility] Work Phone: Start: 08-03-2023 End: 08-04-2023 [facility] [employer] [facility] Has the [employer], or [employer] threatened to shut off services in your home in past 12Mo No [facility] Are you now , , , , never or living with a partner? [facility] How often to you hav e a drink containing alcohol? 2-4 times a month [facility] How many standard drinks containing alcohol do you have on a typical day? 1 or 2 [facility] How often do you hav e 6 or more drinks on 1 occasion? Never [facility] How hard is it for y ou to pay for the very basics like food, housing, medical care, and heating Not hard at all [facility] Do you feel stress - tense, restless, nervous, or anxious, or unable to sleep at night because your mind is troubled all the time - these days [OSQ] Not at all [facility] (I/We) worried wheth er (my/our) food would run out before (I/we) got money to buy more. Never true [facility] Start: 06-11-2017 Gender identity Identifies as female gender (finding) [facility] Work Phone: Start: 06-11-2017 Sexual orientation Heterosexual (vaughn gregorio) [facility] Work Phone: Clinical Notes 08-01-2009 to 08-18-2023 Telephone Encounter - Olive Cuellar RN - 08/08/2023 4:13 PM ESTTelephone Encounter - Kellee Odell OCCA - 08/08/2023 1:12 PM Rosa Honeycutt APRN.CNP - 08/04/2023 8:49 AM EST Note Date & Type Note Facility 08-18-2023 Note HNO ID: [id number] Author: Renetta Guzman RDMS Service: ? Author Type: Waste Salvager Type: Progress Notes Filed: 08/18/2023 9:19 AM Note Text: Radiology Service Progress Note PATIENT NAME: Hortencia Ramírez DATE OF SERVICE: August 18, 2023 TIME: 9:19 AM PATIENT IDENTITY VERIFICATION COMPLETED USING TWO (2) IDENTIFIERS: Name and Date of confirmed by patient verbally. FALL SCREENING: Has the patient had 2 falls in the last year or 1 fall with injury or currently using an Ambulatory Assistive Device (Walker, Cane, Wheelchair, Crutches, etc.)? No PATIENT GENDER DATA: Female. status: : No status: NO. PATIENT RELEVANT IMPLANT DATA REVIEWED: Not Applicable RADIOLOGY DEPARTMENT: Ultrasound PERIPHERAL IV DATA: Not applicable SIGNED BY: Renetta Guzman RDMS August 18, 2023 9:19 AM [facility] 08-08-2023 Miscellaneous Notes Patient calls and notified of results and providers instructions. Patient verbalizes understanding. Transferred to schedule US. Olive Cuellar RN TC to patient with no answer. Left VM to return call to office. TIFFANIE Diaz Cholesterol levels increased. Low fat healthy well portioned diet, regular exercise, and weight loss will help improve this. Liver enzymes were also slightly elevated. I have ordered further blood work and US to evaluate this further Thank you Rosa Cardenas APRN.CNP The 10-year ASCVD risk score (Kulwinder KITCHEN, et al., 2019) is: 2.3% Values used to calculate the score: Age: 57 years Sex: Female Is Non- : No Diabetic: No Tobacco smoker: No Systolic Blood Pressure: 116 mmHg Is BP treated: No HDL Cholesterol: 51 mg/dL Total Cholesterol: 221 mg/dL documented in this encounter [facility] 08-04-2023 Note HNO ID: [id number] Author: Rosa Cardenas APRN.CNP Service: ? Author Type: Nurse Practitioner Type: Progress Notes Filed: 08/04/2023 9:37 AM Note Text: CC: Patient presents with: Yearly Exam HPI Hortencia Ramírez is a 57 year old female who presents today for annual physical exam. HLD: Controlled with diet and exercise. Did gain pounds since last visit, but had hand surgery at the end of summer and just recently restarted he routine exercise. Denies exercise intolerance, chest pain, or shortness of breath. Exercise: works out regularly 3-4 times per week with stationary bicycling and stretching. Diet: Watches diet for salt (salty snacks, added salt, processed frozen/canned foods), sugary/sweet snacks, unhealthy fats: Yes Caffeine: 2-3 cups a day Water intake: average of 4-5 glasses a day. Has noticed her hair thinning towards front of scalp for the past few years. Denies any bald patches, rash, or skin/scalp changes. REVIEW OF SYSTEMS General: no fevers, no chills, no night sweats, no recurrent infections, no change in appetite, no change in energy, and no significant changes in weight Respiratory: no cough, no wheezing, no shortness of breath, no hemoptysis Cardiovascular: no chest pain, no chest pressure, no palpitations, and no swelling GI: No nausea, vomiting, or diarrhea : No history of dysuria, frequency or incontinence Skin: Negative for lesions, rash, and itching Psych: PHQ2 is 0 Endocrine: no cold intolerance, no heat intolerance, no polyuria, no polyphagia, and no polydipsia Neurologic: No headache, weakness, numbness, tingling, dizziness, memory loss, syncope. PAST MEDICAL HISTORY Diagnosis Date Hyperlipidemia, mild PAST SURGICAL HISTORY Procedure Laterality Date EXTRACTION, ERUPTED TOOTH OR EXPOSED ROOT (ELEVATION AND/OR FORCEPS REMOVAL) age 18 wisdom teeth PAST SURGICAL HISTORY OF 2005 +/- MOLE REMOVAL L ARM (non-cancerous) - [facility] ALLERGIES Seasonal Allergies MEDICATIONS ubidecarenone Q-10 (CO Q-10) 10 mg cap Take 10 mg by mouth once daily. multivitamin tablet Take 1 tablet by mouth once daily. OTC PRODUCT Take 1 tablet by mouth once daily. Nutrafol Biotin 500 mcg cap Take by mouth. FAMILY HISTORY Problem Relation Age of Onset Arthritis Mother Rheumatoid arthritis Hypertension Father Lipids Father Diabetes Father borderline Lipids Sister Lipids Brother Stroke Maternal Grandmother Social History Tobacco Use Smoking status: Never Smokeless tobacco: Never Vaping Use Vaping Use: Never used Substance Use Topics Alcohol use: Yes Alcohol/week: 1.0 standard drink of alcohol Types: 1 Glasses of Wine (5oz) per week Comment: Occasionally Drug use: No PHYSICAL EXAM BP 116/84 (BP Site: Left Arm, BP Position: Sitting, BP Cuff Size: Large Adult) Pulse 88 Resp 18 Ht 166 cm (5' 5.35 ) Wt 73 kg (161 lb) LMP 06/03/2017 BMI 26.50 kg/m? General Appearance: well appearing, in no acute distress, alert Pysch: mood and affect broad and appropriate Skin: Skin color, texture, turgor normal for age; Eyes: conjunctiva pink and moist, no icterus, sclera white, non-injected Neck: Thyroid normal size and symmetric without palpable nodules, Neck supple, No adenopathy Lymph nodes: No cervical lymphadenopathy and No supraclavicular lymphadenopathy Lungs: Lungs clear to auscultation. No wheezing, rhonchi, rales. Heart: RRR without murmur, gallop, or rubs. No ectopy Abdomen: Abdomen soft, non-tender. Bowel sounds normal. No masses, organomegaly Extremities: No deformities, edema, skin discoloration, clubbing or cyanosis. Good capillary refill. Depression Assessment due on 09/08/2022 Influenza Vaccine(1) due on 05/09/2023 Covid-19 Vaccine( season) due on 05/09/2023 Mammogram Screening due on 08/04/2024 DTaP,Tdap,Td Vaccine(2 - Td or Tdap) due on 08/04/2024 Hepatitis B Vaccine(1 of 3 - 3-dose series) due on 08/04/2024 Pap Testing due on 08/04/2024 HPV Testing due on 08/04/2024 Diabetes Screening due on 07/31/2025 Colorectal Cancer Screening due on 08/23/2025 Lipid Screening due on 07/31/2027 Shingrix Vaccine Completed Hepatitis C Screening Discontinued HIV Screening Discontinued ASSESSMENT/PLAN: 1. Annual physical exam - ICD9: V70.0, ICD10: Z00.00 (primary diagnosis) - Counseled on healthy diet and regular exercise - Calcium intake with supplements or by diet of 1000 mg/day for under 50, 0456-7345 mg/day for 50+ - Discussed need and benefit for weight loss. BMI 26.50 kg/(m2) - Depression screening tool completed and reviewed with patient. Based on score and interview, patient is not at risk for depression and recommended no further intervention at this time. - Follow up for annual exam in one year - has upcoming appointment with outside lock tender. Will get routine pap, hpv testing, and mammogram order at that visit. - LIPID PANEL BASIC - HEPATIC FUNCTION PNL 2. Mix (more content not included)... [facility] 08-04-2023 History of Presen t illness Narrative CC: Patient presents with: Yearly Exam HPI Hortencia Ramírez is a 57 year old female who presents today for annual physical exam. HLD: Controlled with diet and exercise. Did gain pounds since last visit, but had hand surgery at the end of summer and just recently restarted he routine exercise. Denies exercise intolerance, chest pain, or shortness of breath. Exercise: works out regularly 3-4 times per week with stationary bicycling and stretching. Diet: Watches diet for salt (salty snacks, added salt, processed frozen/canned foods), sugary/sweet snacks, unhealthy fats: Yes Caffeine: 2-3 cups a day Water intake: average of 4-5 glasses a day. Has noticed her hair thinning towards front of scalp for the past few years. Denies any bald patches, rash, or skin/scalp changes. REVIEW OF SYSTEMS General: no fevers, no chills, no night sweats, no recurrent infections, no change in appetite, no change in energy, and no significant changes in weight Respiratory: no cough, no wheezing, no shortness of breath, no hemoptysis Cardiovascular: no chest pain, no chest pressure, no palpitations, and no swelling GI: No nausea, vomiting, or diarrhea : No history of dysuria, frequency or incontinence Skin: Negative for lesions, rash, and itching Psych: PHQ2 is 0 Endocrine: no cold intolerance, no heat intolerance, no polyuria, no polyphagia, and no polydipsia Neurologic: No headache, weakness, numbness, tingling, dizziness, memory loss, syncope. PAST MEDICAL HISTORY Diagnosis Date Hyperlipidemia, mild PAST SURGICAL HISTORY Procedure Laterality Date EXTRACTION, ERUPTED TOOTH OR EXPOSED ROOT (ELEVATION AND/OR FORCEPS REMOVAL) age 18 wisdom teeth PAST SURGICAL HISTORY OF 2005 +/- MOLE REMOVAL L ARM (non-cancerous) - [facility] ALLERGIES Seasonal Allergies MEDICATIONS ubidecarenone Q-10 (CO Q-10) 10 mg cap Take 10 mg by mouth once daily. multivitamin tablet Take 1 tablet by mouth once daily. OTC PRODUCT Take 1 tablet by mouth once daily. Nutrafol Biotin 500 mcg cap Take by mouth. FAMILY HISTORY Problem Relation Age of Onset Arthritis Mother Rheumatoid arthritis Hypertension Father Lipids Father Diabetes Father borderline Lipids Sister Lipids Brother Stroke Maternal Grandmother Social History Tobacco Use Smoking status: Never Smokeless tobacco: Never Vaping Use Vaping Use: Never used Substance Use Topics Alcohol use: Yes Alcohol/week: 1.0 standard drink of alcohol Types: 1 Glasses of Wine (5oz) per week Comment: Occasionally Drug use: No PHYSICAL EXAM BP 116/84 (BP Site: Left Arm, BP Position: Sitting, BP Cuff Size: Large Adult) Pulse 88 Resp 18 Ht 166 cm (5' 5.35 ) Wt 73 kg (161 lb) LMP 06/03/2017 BMI 26.50 kg/m General Appearance: well appearing, in no acute distress, alert Pysch: mood and affect broad and appropriate Skin: Skin color, texture, turgor normal for age; Eyes: conjunctiva pink and moist, no icterus, sclera white, non-injected Neck: Thyroid normal size and symmetric without palpable nodules, Neck supple, No adenopathy Lymph nodes: No cervical lymphadenopathy and No supraclavicular lymphadenopathy Lungs: Lungs clear to auscultation. No wheezing, rhonchi, rales. Heart: RRR without murmur, gallop, or rubs. No ectopy Abdomen: Abdomen soft, non-tender. Bowel sounds normal. No masses, organomegaly Extremities: No deformities, edema, skin discoloration, clubbing or cyanosis. Good capillary refill. Depression Assessment due on 09/08/2022 Influenza Vaccine(1) due on 05/09/2023 Covid-19 Vaccine( - 2022- season) due on 05/09/2023 Mammogram Screening due on 08/04/2024 DTaP,Tdap,Td Vaccine(2 - Td or Tdap) due on 08/04/2024 Hepatitis B Vaccine(1 of 3 - 3-dose series) due on 08/04/2024 Pap Testing due on 08/04/2024 HPV Testing due on 08/04/2024 Diabetes Screening due on 07/31/2025 Colorectal Cancer Screening due on 08/23/2025 Lipid Screening due on 07/31/2027 Shingrix Vaccine Completed Hepatitis C Screening Discontinued HIV Screening Discontinued ASSESSMENT/PLAN: 1. Annual physical exam - ICD9: V70.0, ICD10: Z00.00 (primary diagnosis) - Counseled on healthy diet and regular exercise - Calcium intake with supplements or by diet of 1000 mg/day for under 50, 5484-2713 mg/day for 50+ - Discussed need and benefit for weight loss. BMI 26.50 kg/(m^2) - Depression screening tool completed and reviewed with patient. Based on score and interview, patient is not at risk for depression and recommended no further intervention at this time. - Follow up for annual exam in one year - has upcoming appointment with outside lock tender. Will get routine pap, hpv testing, and mammogram order at that visit. - LIPID PANEL BASIC - HEPATIC FUNCTION PNL 2. Mixed hyperlipidemia - ICD9: 272.2, ICD10: E78.2 - Control undetermined, due for labs - Counseled on healthy diet and regular exercise - Discussed need for and benefit of weight loss. BMI 26.50 kg/(m^2) - LIPID PANEL BASIC - HEPATIC FUNCTION PNL 3. Thinning hair - ICD9: 704.00, ICD10: L65.9 - TSH BLD 4. Encounter for immunization - ICD9: V03.89, ICD10: Z23 - INFLUENZA VACCINE, AGE 6 MO - 64 YR, QUADRIVALENT (AFLURIA, FLULAVAL, FLUZONE) - [employer] COVID-19 VACCINE (2022- SEASON) AGE 12+ YR Rosa Cardenas APRN.TAWNYA documented in this encounter [facility] 10-28-2022 Note HNO ID: [id number] Author: Jolynn Eagle APRN.TAWNYA Service: ? Author Type: Nurse Practitioner Type: Progress Notes Filed: 10/28/2022 12:04 PM Note Text: [facility]; patient wants antiviral medication. Discussed with patient that she does not meet [facility] criteria (BMI <25, no smoking history, negative PMH). Patient wishes to cancel appointment. Appointment cancelled. [facility] 10-28-2022 Note HNO ID: [id number] Author: Jolynn Eagle APRN.TAWNYA Service: ? Author Type: Nurse Practitioner Type: Progress Notes Filed: 10/28/2022 11:43 AM Note Text: Pt cancelled appointment and/or transferred to another provider prior to attempted connection. [facility] 10-28-2022 History of Presen t illness Narrative [facility] to [facility] with [facility] concern; patient wants antiviral medication. Discussed with patient that she does not meet [facility] criteria (BMI <25, no smoking history, negative PMH). Patient wishes to cancel appointment. Appointment cancelled. documented in this encounter [facility] 10-28-2022 History of Presen t illness Narrative Images from the original note were not included. Pt cancelled appointment and/or transferred to another provider prior to attempted connection. documented in this encounter [facility] 07-31-2022 History of Presen t illness Narrative CC: Patient presents with: Physical: Annual Physical HPI Hortencia Ramírez is a 56 year old female who presents today for annual physical exam. Denies any complaints or concerns. Exercise: works out regularly 2-3 times per week with walking. Diet: Watches diet for salt (salty snacks, added salt, processed frozen/canned foods), sugary/sweet snacks, unhealthy fats: Yes Caffeine: 1 cup a day Water intake: 4-5 glasses a day. HLD: denies any chest pain, shortness of breath or exercise intolerance. Controlled with diet and exercise. Is not fasting today (had 1 plain scrambled egg 3 hours ago) but with holidays will find it difficult to return for fasting lab work REVIEW OF SYSTEMS General: no fevers, no chills, no night sweats, no recurrent infections, no change in appetite, no change in energy, and no significant changes in weight HEENT: no frequent or significant headaches, no changes in hearing, no visual changes, no nose bleeds, no sinus or nasal problems Respiratory: no cough, no wheezing, no shortness of breath, no hemoptysis Cardiovascular: no chest pain, no chest pressure, no palpitations, and no swelling GI: No nausea, vomiting, or diarrhea : No history of dysuria, frequency or incontinence SUPERINTENDENT POWER: Negative for abnormal vaginal bleeding, abnormal vaginal discharge Musculoskeletal: Negative for joint pain or swelling, back pain or muscle pain Skin: Negative for lesions, rash, and itching Psych: PHQ2 is 0 Endocrine: no fatigue, no cold intolerance, no heat intolerance, no polyuria, no polyphagia, and no polydipsia Neurologic: No headache, weakness, numbness, tingling, dizziness, syncope. PAST MEDICAL HISTORY Diagnosis Date Hyperlipidemia, mild PAST SURGICAL HISTORY Procedure Laterality Date EXTRACTION, ERUPTED TOOTH OR EXPOSED ROOT (ELEVATION AND/OR FORCEPS REMOVAL) age 18 wisdom teeth PAST SURGICAL HISTORY OF 2006 +/- MOLE REMOVAL L ARM (non-cancerous) - [place] ALLERGIES Seasonal Allergies MEDICATIONS ubidecarenone Q-10 (CO Q-10) 10 mg cap Take 10 mg by mouth once daily. multivitamin tablet Take 1 tablet by mouth once daily. Biotin 500 mcg cap Take by mouth. FAMILY HISTORY Problem Relation Age of Onset Arthritis Mother Rheumatoid arthritis Hypertension Father Lipids Father Diabetes Father borderline Lipids Sister Lipids Brother Stroke Maternal Grandmother Social History Tobacco Use Smoking status: Never Smokeless tobacco: Never Vaping Use Vaping Use: Never used Substance Use Topics Alcohol use: Yes Alcohol/week: 1.0 standard drink Types: 1 Glasses of Wine (5oz) per week Comment: Occasionally Drug use: No PHYSICAL EXAM BP 118/82 Pulse 68 Resp 16 Wt 71.2 kg (157 lb) LMP 06/03/2017 BMI 25.34 kg/m General Appearance: well appearing, in no acute distress, alert Pysch: mood and affect broad and appropriate Skin: Skin color, texture, turgor normal for age; Eyes: conjunctiva pink and moist, no icterus, sclera white, non-injected Neck: Thyroid normal size and symmetric without palpable nodules, No adenopathy Lymph nodes: No cervical lymphadenopathy and No supraclavicular lymphadenopathy Lungs: Lungs clear to auscultation. No wheezing, rhonchi, rales. Heart: RRR without murmur, gallop, or rubs. No ectopy Abdomen: Abdomen soft, non-tender. Bowel sounds normal. No masses, organomegaly Extremities: No deformities, edema, skin discoloration, clubbing or cyanosis. Good capillary refill. Neurological: Gait normal: speech normal, mental status intact, muscle tone normal, muscle strength normal DEPRESSION ASSESSMENT Never done COLORECTAL CANCER SCREENING due on 08/01/2022 INFLUENZA(1) due on 03/07/2023 MAMMOGRAM due on 07/31/2023 DTAP,TDAP,TD(2 - Td or Tdap) due on 07/31/2023 HEPATITIS B(1 of 3 - 3-dose series) due on 07/31/2023 PAP TESTING due on 07/31/2023 HPV TESTING due on 07/31/2023 COVID-19 VACCINE(4 - Booster for Pfizer series) due on 07/31/2023 DIABETES SCREEN due on 08/01/2024 LIPID SCREEN due on 08/01/2026 SHINGRIX VACCINE Completed HEPATITIS C SCREENING Discontinued HIV SCREENING Discontinued ASSESSMENT/PLAN: 1. Annual physical exam - ICD9: V70.0, ICD10: Z00.00 (primary diagnosis) - Counseled on healthy diet and regular exercise - Calcium intake with supplements or by diet of 1000 mg/day for under 50, 5263-0728 mg/day for 50+ - Discussed need and benefit for weight loss. BMI 25.34 kg/(m^2) - Colorectal cancer screening recommended - agrees to Cologuard - Counseled patient on limiting alcohol intake to 1 drink per day - Depression screening tool completed and reviewed with patient. Based on score and interview, patient is not at risk for depression and recommended no further intervention at this time. - Follow up for annual exam in one year - CBC + DIFF - COMP METABOLIC PANEL - LIPID PANEL, NONFASTING 2. Mixed hyperlipidemia - ICD9: 272.2, ICD10: E78.2 - to be determined upon return of lab results - Encouraged following a low fat, low cholesterol diet. - Discussed the benefits of regular aerobic exercise and weight loss. - COMP METABOLIC PANEL - LIPID PANEL, NONFASTING 3. Colon cancer screening - ICD9: V76.51, ICD10: Z12.11 - COLOGUARD Prescription instructions reviewed with patient as applicable. Potential red flag symptoms discussed with the patient. Reviewed appropriate action plan to take if red flag symptoms occur. Patient agreeable to treatment plan. Rosa Cardenas APRN.CNP documented in this encounter [facility] documented as of this encounter (statuses as of 07/31/2022) [facility] History of Past illness Narrative* Problem Noted Date Resolved Date Hyperlipidemia 08/01/2009 06/11/2017 Overview: LDL 166 (April 2009) documented as of this encounter (statuses as of 10/28/2022) [facility] History of Past illness Narrative* Problem Noted Date Diagnosed Date Resolved Date Hyperlipidemia 08/01/2009 06/11/2017 Overview: LDL 166 (April 2009) documented as of this encounter (statuses as of 08/04/2023) [facility] History of Past illness Narrative* Problem Noted Date Diagnosed Date Resolved Date Hyperlipidemia 08/01/2009 06/11/2017 Overview: LDL 166 (April 2009) documented as of this encounter (statuses as of 08/08/2023) [facility] Diagnosis Annual physical exam- Primary Routine general medical examination at a health care facility Mixed hyperlipidemia Colon cancer screening Special screening for malignant neoplasms, colon [facility] Diagnosis Treatment not available- Primary Procedure not carried out for other reasons [facility] Diagnosis Annual physical exam- Primary Routine general medical examination at a health care facility Mixed hyperlipidemia Thinning hair Alopecia, unspecified Encounter for immunization Need for other specified prophylactic vaccination against single bacterial disease [facility] Diagnosis Elevated liver enzymes- Primary Other nonspecific abnormal serum enzyme levels documented in this encounter [facility] for referral (narrative)* Diagnostic Procedure Only (Routine) - Authorized Specialty Diagnoses / Procedures Referred By Sharon peguero Referred To Contact [facility] Diagnoses Elevated liver enzymes Procedures US ABD RIGHT UPPER QUADRANT US ABDOMINAL REAL TIME W/IMAGE LIMITED Rosa Cardenas APRN.CNP [address] [place] [address] [id number] Referral ID Status Reason Start Date Expiration Date Visits Requested Visits Authorized [id number] Authorized Auto-Generat ed Referral 08/08/2023 09/06/2024 1 1 [facility] Summary Purpose Family History No Family History Records Found Advance Directives No Advanced Directives Records Found Additional Source Comments Source Comments (unrecognize d section and content) In the event this informatio n is protected by the Federal Confidentiality of Alcohol and Drug Abuse Patient Records regulations: The Federal rules restrict any use of the information to criminally investigate or prosecute any alcohol or drug abuse patient.[facility] the event this information is protected by the Federal Confidentiality of Alcohol and Drug Abuse Patient Records regulations: The Federal rules restrict any use of the information to criminally investigate or prosecute any alcohol or drug abuse patient.[facility] the event this information is protected by the Federal Confidentiality of Alcohol and Drug Abuse Patient Records regulations: The Federal rules restrict any use of the information to criminally investigate or prosecute any alcohol or drug abuse patient.[facility] the event this information is protected by the Federal Confidentiality of Alcohol and Drug Abuse Patient Records regulations: The Federal rules restrict any use of the information to criminally investigate or prosecute any alcohol or drug abuse patient.[facility] the event this information is protected by the Federal Confidentiality of Alcohol and Drug Abuse Patient Records regulations: The Federal rules restrict any use of the information to criminally investigate or prosecute any alcohol or drug abuse patient.[facility] Reason for Visit (unrecogniz ed section and content) Reason Comments Appointment Cancelled Reason Comments Covid19 Concern Reason Comments Yearly Exam Reason Comments Results Care Teams (unrecognized sec tion and content) Licensed Psychologist Manager Relationship Specialty Start Date End Date Ela Harp MD [address], [place] [id number] PCP - General Internal Medicine 12/21/18 Licensed Psychologist Manager Relationship Specialty Start Date End Date Ela Harp MD [address] [place] [id number] PCP - General Internal Medicine 12/21/18 Licensed Psychologist Manager Relationship Specialty Start Date End Date Ela Harp MD [address] [place] [id number] PCP - General Internal Medicine 12/21/18 INFORMATION SOURCE (unrecogn ized section and content) FOR RECORDS PERTAINING TO PATIENTS WHO ARE OR HAVE BEEN ENROLLED IN A CHEMICAL DEPENDENCY/SUBSTANCEABUSE PROGRAM, SOME INFORMATION MAY BE OMITTED. This clinical summary was aggregated from multiple sources. Caution should be exercised in using it in the provision of clinical care. This summary normalizes information from multiple sources, and as a consequence, information in this document may materially change the coding, format and clinical context of patient data. In addition, data may be omitted in some cases. CLINICAL DECISIONS SHOULD BE BASED ON THE PRIMARY CLINICAL RECORDS. [employer] [facility]. provides no warranty or guarantee of the accuracy or completeness of information in this document.
== END | disposition home or self-care (01) ==
PROVIDERS: PCP Nurse Practitioner; Referring Provider Nurse Practitioner Women's Health; Visit Provider Nurse Practitioner Women's Health
DX: Z12.31 Encounter for screening mammogram for malignant neoplasm of breast (principal)
CPT/HCPCS: 77063; 77067

== ENCOUNTER → 2024-12-01 | Outpatient (CLI) | payer BC, SELFPAY ==
--- NOTE | 2024-12-01 12:15 | BI_ITS ---
EXAM: SCRN MAMM (CAD)W/SATYA BILAT 12/01/2024 CLINICAL HISTORY: F, Age 58 y/o , SCREENING FOR BREAST CANCER BREAST CANCER RISK ASSESSMENT: Has not been calculated. TECHNIQUE: Bilateral screening digital breast tomosynthesis with 2D images. Computer aided detection. COMPARISON: Prior exam(s) dated 09/16/2023 and 08/07/2022. FINDINGS: TISSUE DENSITY: The breast tissue is composed of scattered area of fibroglandular density. Bilateral Breast Mammographic Findings: There are no other dominant masses, areas of architectural distortion, or suspicious calcifications. Stable nodular masslike densities are seen in both breasts. Benign round microcalcifications are seen in both breasts. BI/SCRN MAMM (CAD)W/SATYA BILAT IMPRESSION: Right Breast: BIRADS 2 BENIGN FINDING. Left Breast: BIRADS 2 BENIGN FINDING. OVERALL FINAL ASSESSMENT: BIRADS 2 BENIGN FINDING RECOMMENDATION: Routine annual follow-up in 1 Year A letter with findings and recommendations will be mailed to the patient. Reading Location: [id number]
== END | disposition home or self-care (01) ==
LOC: OPBI 11:57
PROVIDERS: PCP Nurse Practitioner; Referring Provider Nurse Practitioner Women's Health; Visit Provider Nurse Practitioner Women's Health
DX: Z12.31 Encounter for screening mammogram for malignant neoplasm of breast (principal)
CPT/HCPCS: 77063; 77067